=== PATIENT | female | born 1995 ===

== ENCOUNTER 2018-06-13 08:08 | Emergency (ER) | payer SELFPAY ==
[2018-06-13] MEDS ORDERED: Ibuprofen 200 MG TAB ONE (08:26)
== END 2018-06-13 08:42 | disposition home or self-care (01) ==
LOC: ERS 08:08
DX: S16.1XXA Strain of muscle, fascia and tendon at neck level, initial encounter (principal); F41.9 Anxiety disorder, unspecified; F32.9 Major depressive disorder, single episode, unspecified; Z79.899 Other long term (current) drug therapy; V43.52XA Car driver injured in collision with other type car in traffic accident, initial encounter
CPT/HCPCS: 99283